=== PATIENT | female | born 1940 | race African-American/Black ===

== ENCOUNTER → 2017-12-19 | Outpatient (CLI) | payer MEDICARE ==
[~2017-12-19] MED LIST: AMIODARONE HCL200 MG PO; AMLODIPINE BESY10 MG PO; COLACE100 MG PO; DYMISTA NASAL S23 GM; IBUPROFEN200 MG PO; LOSARTAN POTAS100 MG PO; OMEPRAZOLE40 MG PO; PRAVASTATIN SOD40 MG PO; RANITIDINE HCL300 MG PO
--- NOTE | 2017-12-19 09:37 | Diagnostic Imaging Report ---
PROCEDURE:US OF PAROTID COMPARISON:None. INDICATIONS:Parotid Mass FINDINGS:Within the right parotid gland, corresponding to the clinically palpable abnormality, there is a lobulated heterogeneous but predominantly hypoechoic, relatively well-circumscribed lesion with internal vascularity measuring 2.6 x 1.5 x 2 cm. Comparison examination of the left parotid gland shows uniform glandular echotexture without left parotid nodule. CONCLUSION: 2.6 cm lobulated hypoechoic lesion in the right parotid may reflect a pleomorphic adenoma or Warthin tumor. Sonographic guided fine needle aspiration had been requested at the time of this dictation. Dictated by: Jeffrey Aleman M.D. on 12/19/2017 at 9:37 Electronically approved by: Jeffrey Aleman M.D. on 12/19/2017 at 9:37
--- NOTE | 2017-12-19 11:46 | Diagnostic Imaging Report ---
PROCEDURE:FINE NEEDLE ASPIRATION COMPARISON:Diagnostic parotid ultrasound performed same day. Preprocedure diagnosis:parotid mass Post procedure diagnosis: Parotid mass Planning Technician: Jeffrey Aleman M.D. Estimated blood loss: Minimal Blood products administered: None Implants/grafts: None Specimens: Fine-needle aspiration specimens x3 Complications: No immediate Condition at completion of procedure: Stable Disposition: Discharge home Sedation/anesthesia: None Additional medications: Lidocaine 1% for local anesthesia. Procedure in detail: Informed consent for the procedure was obtained from the patient and documented in the medical record after discussion of risks and benefits. The patient was placed in the supine position on the sonographic table. Preliminary sonographic evaluation confirmed presence of a lobulated predominantly hypoechoic nodule in the superficial lobe of the right parotid gland. A suitable percutaneous approach was identified. The right facial region was then prepped and draped in standard sterile fashion. 1% lidocaine was infiltrated into the skin and subcutaneous tissues for local anesthesia. Under continuous sonographic guidance, a total of 3 fine needle aspiration specimens were obtained using 25 gauge needles. Specimens were submitted to on-site cytopathology personnel and adequacy was confirmed. At the conclusion of sampling the needle was removed and a sterile dressing was applied. The patient tolerated the procedure well without immediate complication. CONCLUSION: Successful ultrasound-guided fine needle aspiration of a right parotid nodule without immediate complication. Dictated by: Jeffrey Aleman M.D. on 12/19/2017 at 11:46 Electronically approved by: Jeffrey Aleman M.D. on 12/19/2017 at 11:46
--- NOTE | 2017-12-19 11:47 | Diagnostic Imaging Report ---
PROCEDURE:ULTRASOUND GUIDANCE FOR PROCEDURE COMPARISON:None. INDICATIONS: parotid mass PROCEDURE: See conclusion CONCLUSION: Refer to "FINE NEEDLE ASPIRATION" also performed 12/19/2017 for full dictated report. Dictated by: Jeffrey Aleman M.D. on 12/19/2017 at 11:47 Electronically approved by: Jeffrey Aleman M.D. on 12/19/2017 at 11:47
== END ==
LOC: US 08:31
PROVIDERS: ATTEND Otolaryngology
DX: K11.9 Disease of salivary gland, unspecified (principal)
CPT/HCPCS: 10022; 76536; 76942; 88172; 88173; 88305

== ENCOUNTER 2018-01-08 10:17 | Emergency (ER) | payer MEDICARE ==
[~2018-01-08] VITALS: Ht 170.2 cm; Wt 106.6 kg
--- OUTSIDE RECORDS SUMMARY | 2018-01-08 10:20 | XMS REPORT ---
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 Allergies, Adverse Reactions, Alerts This patient has no known allergies or adverse reactions. Medications This patient has no known medications. Results Test Description Test Time Test Comments Text Results Atomic Results Result Comments US OF PAROTID [place] [address] Patient Name: INDIRA DE LA ROSA MR #: [id number] : 1940 Age/Sex: 77/F Req #: [id number] [facility] Physician: Ordered by: GREYSON WILLIS, FELIPE WILLIS Report #: [id number] Location: US Room/Bed: Procedure: [id number] US/US OF PAROTID Exam Date: Exam Time: REPORT STATUS: Signed PROCEDURE: US OF PAROTID COMPARISON: None. INDICATIONS: Parotid Mass FINDINGS: Within the right parotid gland, corresponding to the clinically palpable abnormality, there is a lobulated heterogeneous but predominantly hypoechoic, relatively well- circumscribed lesion with internal vascularity measuring 2.6 x 1.5 x 2 cm. Comparison examination of the left parotid gland shows uniform glandular echotexture without left parotid nodule. CONCLUSION: 2.6 cm lobulated hypoechoic lesion in the right parotid may reflect a pleomorphic adenoma or Warthin tumor. Sonographic guided fine needle aspiration had been requested at the time of this dictation. Dictated by : Adolfo Bo M.D. on 12/19/2017 at 9:37 Electronically approved by: Adolfo Bo M.D. on 12/19/2017 at 9:37 Dictated By: ADOLFO BO MD 6 Transcribed By : JESUS on 12/19/17936 COPY TO: FELIPE RUBI FINE NEEDLE ASPIRATION [place] [address] Patient Name: INDIRA DE LA ROSA MR #: [id number] : 1940 Age/Sex: 77/F Req #: [id number] Adm Physician: Ordered by: FELIPE RUBI MD, MD Report #: [id number] Location: Room/Bed: Procedure: [id number] US/FINE NEEDLE ASPIRATION Exam Date: 12/19/17 Exam Time: 1007 REPORT STATUS: Signed PROCEDURE: FINE NEEDLE ASPIRATION COMPARISON: Diagnostic parotid ultrasound performed same day. Preprocedure diagnosis: parotid mass Post procedure diagnosis: Parotid mass Coal Screener: Adolfo Bo M.D. Estimated blood loss: Minimal Blood products administered: None Implants/grafts: None Specimens: Fine-needle aspiration specimens x3 Complications: No immediate Condition at completion of procedure: Stable Disposition: Discharge home Sedation/anesthesia: None Additional medications: Lidocaine 1% for local anesthesia. Procedure in detail: Informed consent for the procedure was obtained from the patient and documented in the medical record after discussion of risks and benefits. The patient was placed in the supine position on the sonographic table. Preliminary sonographic evaluation confirmed presence of a lobulated predominantly hypoechoic nodule in the superficial lobe of the right parotid gland. A suitable percutaneous approach was identified. The right facial region was then prepped and draped in standard sterile fashion. 1% lidocaine was infiltrated into the skin and subcutaneous tissues for local anesthesia. Under continuous sonographic guidance, a total of 3 fine needle aspiration specimens were obtained using 25 gauge needles. Specimens were submitted to on-site cytopathology personnel and adequacy was confirmed. At the conclusion of sampling the needle was removed and a sterile dressing was applied. The patient tolerated the procedure well without immediate complication. CONCLUSION: Successful ultrasound-guided fine needle aspiration of a right parotid nodule without immediate complication. Dictated by: Adolfo Bo M.D. on 12/19/2017 at 11:46 Electronically approved by: Adolfo Bo M.D. on 12/19/2017 at 11:46 Dictated By: ADOLFO BO MD 1146 Transcribed By: JESUS on 12/19/17 1146 COPY TO: FELIPE RUBI GUIDANCE FOR PROCEDURE [place] [address] Patient Name: INDIRA DE LA ROSA MR #: [id number] : 1940 Age/Sex: 77/F Req #: [id number] Adm Physician: Ordered by: FELIPE RUBI MD, MD Report #: [id number] Location: Room/Bed: Procedure: [id number] US/US GUIDANCE FOR PROCEDURE Exam Date: 12/19/17 Exam Time: 1007 REPORT STATUS: Signed PROCEDURE: ULTRASOUND GUIDANCE FOR PROCEDURE COMPARISON: None. INDICATIONS: parotid mass PROCEDURE: See conclusion CONCLUSION: Refer to "FINE NEEDLE ASPIRATION" also performed 12/19/2017 for full dictated report. Dictated by: Adolfo Bo M.D. on 12/19/2017 at 11:47 Electronically approved by: Adolfo Bo M.D. on 12/19/2017 at 11:47 Dictated By : ADOLFO BO MD 46 Transcribed By: JESUS on 12/19/171146 COPY TO: FELIPE RUBI Stress Test - Treadmill ONLY [place] [address] Patient Name : INDIRA DE LA ROSA MR #: [id number] : 1940 Age/Sex: 77/F Adm Physician : ADOLFO DE LOS SANTOS MD Admit Date : Location : [place] Room/Bed : REPORT: Cardiology Report DATE OF STUDY: September 21, 2017 LEXISCAN NUCLEAR STRESS TEST INDICATION: Chest pain. COMPLICATIONS : None. TECHNIQUE: The patient was given 11 millicuries of Myoview. Resting images were obtained in the horizontal long axis, vertical long axis and short axis. After completion of resting pictures, the patient was hooked up to the EKG machine and infused with Lexiscan over 15 seconds. Thirty minutes after completion of Lexiscan infusion, stress images were obtained in the horizontal long axis, vertical long axis and short axis using 33 millicuries of Myoview. RESULTS: 1. The resting EKG demonstrated normal sinus rhythm with left ventricular hypertrophy. 2. There were no EKG changes and no symptoms during Lexiscan infusion. 3. There was normal perfusion to all segments of myocardium in both stress and rest. 4. There was normal left ventricular size and function with an ejection fraction of 62 %. CONCLUSION: The patient has normal left ventricular size and function with an ejection fraction of 62%. There is no reversible defect and no fixed defect and no evidence of myocardial ischemia. DD: 2015 16:04 Job#: [id number] Signature Date Dictated By: ADOLFO DE LOS SANTOS MD Transcribed By: KEYANA on 09/21/17 < Electronically signed by ADOLFO DE LOS SANTOS MD><<Signature on File>>10/02/17 0700 COPY TO:
[2018-01-08] MEDS ORDERED: FERROUS SULFAT325 MG PO (11:00)
[2018-01-08] MEDS ORDERED: HYDRALAZINE HCL25 MG PO (11:00)
[2018-01-08] MEDS ORDERED: LABETALOL HCL200 MG PO (11:00)
[2018-01-08] MEDS ORDERED: LOSARTAN POTAS100 MG PO (11:00)
[2018-01-08] MEDS ORDERED: MECLIZINE HCL 12.5 MG TAB PO ONE (11:30)
[2018-01-08] MEDS ORDERED: ONDANSETRON HCL 4 MG ORAL DISINTEGRATING TAB PO ONE (11:30)
[2018-01-08 11:33] LABS: BASOPHILS # (AUTO) 0.1 (0.0-0.1); BASOPHILS % 0.6 % (0.0-1.0); EOSINOPHILS # (AUTO) 0.2 (0.0-0.4); EOSINOPHILS % 1.4 % (0.0-6.0); HEMATOCRIT 34.3 % (34.2-44.1); HEMOGLOBIN 10.9 g/dL (12.0-16.0); LYMPHOCYTES # (AUTO) 1.4 (1.0-3.2); LYMPHOCYTES % 12.9 % (18.0-39.1); MEAN CORPUSCULAR HEMOGLOBIN 21.8 pg (28-32); MEAN CORPUSCULAR HGB CONC 31.8 g/dL (31-35); MEAN CORPUSCULAR VOLUME 68.7 fL (81-99); MONOCYTES # (AUTO) 0.6 (0.2-0.8); MONOCYTES % 5.8 % (4.4-11.3); NEUTROPHILS # (AUTO) 8.6 (2.1-6.9); NEUTROPHILS % 78.9 % (38.7-80.0); PLATELET COUNT 311 x10e3/uL (140-360); RED BLOOD COUNT 4.99 x10e6/uL (3.6-5.1); RED CELL DISTRIBUTION WIDTH 16.9 % (11.7-14.4)
[2018-01-08 11:50] LABS: ALANINE AMINOTRANSFERASE 19 IU/L (0-55); ALBUMIN 3.4 g/dL (3.5-5.0); ALBUMIN/GLOBULIN RATIO 0.9 (0.8-2.0); ALKALINE PHOSPHATASE 96 IU/L (40-150); BLOOD UREA NITROGEN 13 mg/dL (7-26); BUN/CREATININE RATIO 14 (6-25); CARBON DIOXIDE 24 mmol/L (22-29); CHLORIDE 105 mmol/L (98-107); CREATININE, SERUM 0.93 mg/dL (0.57-1.11); EST GLOMERULAR FILTRATION RATE > 60 ML/MIN (60-); GLUCOSE 99 mg/dL (74-118); SODIUM 140 mmol/L (136-145)
== END 2018-01-08 13:41 | disposition home or self-care (01) ==
LOC: ER 10:17
DX: R42 Dizziness and giddiness (principal); R11.0 Nausea; I10 Essential (primary) hypertension; D64.9 Anemia, unspecified
CPT/HCPCS: 36415; 80053; 85025; 93005; 99284

== ENCOUNTER 2018-01-14 09:01 | Emergency (ER) | payer MEDICARE ==
[~2018-01-14] VITALS: Ht 170.2 cm; Wt 97.5 kg
[~2018-01-14 09:01] MED LIST changes: +FERROUS SULFAT325 MG PO; +HYDRALAZINE HCL25 MG PO; +LABETALOL HCL200 MG PO
--- OUTSIDE RECORDS SUMMARY | 2018-01-14 09:05 | XMS REPORT | Continuity of Care Document ---
Author Author [facility] Organization 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 No 01/08/18 1:34pm If yes, is advance directive on file with [facility]? No 03/04/15 4:33pm If not on file with [facility] will patient provide a copy? No 01/08/18 1:34pm Do you have a Directive to Physician? No 01/08/18 1:34pm Do you have a Medical Power of Catia Designer? No 01/08/18 1:34pm Do you have an out of hospital Do Not Resuscitate Order? No 01/08/18 1:34pm Do you have any special needs we should be aware of? No 01/08/18 1:34pm Do you have a support person here with you today? Yes 01/08/18 1:34pm Did patient receive Notice of Privacy Practices? Yes 01/08/18 1:34pm Did patient receive patient rights and responsibilities? Yes 01/08/18 1:34pm Problems No problem information available. Medications Current Home Medications Medication Dose Units Route Directions Days Qty Instructions Start Date Amiodarone Hcl 200 Mg Tablet 200 Mg Oral Daily Amlodipine Besylate 10 Mg Tablet 10 Mg Oral Daily 30 Tab Azelastine/Fluticasone (Dymista Nasal [place]) 23 Gm [place].pump 137 Mg Nasal Daily Docusate Sodium (Colace) 100 Mg Cap 100 Mg Oral Daily 30 Cap Ferrous Sulfate 325 Mg Tablet 32 Mg Oral Daily Hydralazine Hcl 25 Mg Tab 25 Mg Oral Three Times A Day Ibuprofen 200 Mg Capsule 200 Mg Oral Daily Labetalol Hcl 200 Mg Tablet 200 Mg Oral Twice A Day 60 Tab Losartan Potassium 100 Mg Tablet 100 Mg Oral Daily Losartan Potassium 100 Mg Tablet 100 Mg Oral Daily Omeprazole 40 Mg Capsule.dr 40 Mg Oral Daily Pravastatin Sodium 40 Mg Tablet 40 Mg Oral Daily Ranitidine Hcl 300 Mg Tablet 300 Mg Oral Daily Social History Social History Problem Response Recorded Date/Time Onset Date Status Hx Psychiatric Problems No 03/04/2015 4:33pm Not Applicable Not Applicable Hx Eating Disorder No 03/04/2015 4:33pm Not Applicable Not Applicable Hx Substance Use Disorder No 03/04/2015 4:33pm Not Applicable Not Applicable Hx Depression No 03/04/2015 4:33pm Not Applicable Not Applicable Hx Alcohol Use No 03/04/2015 4:33pm Not Applicable Not Applicable Hx Substance Use Treatment No 03/04/2015 4:33pm Not Applicable Not Applicable Hx Physical Abuse No 03/04/2015 4:33pm Not Applicable Not Applicable Smoking Status Start Date Stop Date Never Smoker Hospital Discharge Instructions No hospital discharge instruction information available. Plan of Care Discharge Date 01/08/18 1:41pm Disposition HOME, SELF-CARE Condition at Discharge Stable Instructions/Education Provided Hypertension Forms Provided Work/School Excuse Prescriptions See Medication Section Referrals VISHNU BOOGIE MD Order Date: [facility] Address: [address] [place] [id number] Additional Instructions/Education follow up with pcp note changes to hydralazine and change to losartan/hctz Functional Status No functional status information available. Allergies, Adverse Reactions, Alerts No known allergies. Immunizations No immunization information available. Vital Signs Acute Vital Signs Vital Response Date/Time Height 5 ft 7 in 01/08/2018 10:40am Weight 235 lb 01/08/2018 10:40am Body Mass Index 36.8 kg/m^2 01/08/2018 10:40am Results Laboratory Results Test Name Result Units Flags Reference Collection Date/Time Result Date/ Time Comments White Blood Count 10.84 x10e3/uL H 4.8-10.8 01/08/2018 11:20am 2017 12:01pm Red Blood Count 4.99 x10e6/uL 3.6-5.1 01/08/2018 11:2001/08/2018 12: 01pm Hemoglobin 10.9 g/dL L 12.0-16.0 01/08/2018 11:2001/08/2018 12:01pm Hematocrit 34.3 % 34.2-44.1 01/08/2018 11:2001/08/2018 12:01pm Mean Corpuscular Volume 68.7 fL L 81-99 01/08/2018 11:2001/08/2018 12 :01pm Mean Corpuscular Hemoglobin 21.8 pg L 28-32 01/08/2018 11:202017 12:01pm Mean Corpuscular Hemoglobin Concent 31.8 g/dL 31-35 01/08/2018 11:01/08/2018 12:01pm Red Cell Distribution Width 16.9 % H 11.7-14.4 01/08/2018 11:202017 12:01pm Platelet Count 311 x10e3/uL 140-360 01/08/2018 11:2001/08/2018 12: 01pm Neutrophils (%) (Auto) 78.9 % 38.7-80.0 01/08/2018 11:2001/08/2018 12:01pm Lymphocytes (%) (Auto) 12.9 % L 18.0-39.1 01/08/2018 11:2001/08/2018 12:01pm Monocytes (%) (Auto) 5.8 % 4.4-11.3 01/08/2018 11:2001/08/2018 12: 01pm Eosinophils (%) (Auto) 1.4 % 0.0-6.0 01/08/2018 11:20am 01/08/2018 12: 01pm Basophils (%) (Auto) 0.6 % 0.0-1.0 01/08/2018 11:20am 01/08/2018 12: 01pm IM GRANULOCYTES % 0.4 % 0.0-1.0 01/08/2018 11:20am 01/08/2018 12:01pm Neutrophils # (Auto) 8.6 H 2.1-6.9 01/08/2018 11:20am 01/08/2018 12: 01pm Lymphocytes # (Auto) 1.4 1.0-3.2 01/08/2018 11:20am 01/08/2018 12: 01pm Monocytes # (Auto) 0.6 0.2-0.8 01/08/2018 11:20am 01/08/2018 12:01pm Eosinophils # (Auto) 0.2 0.0-0.4 01/08/2018 11:20am 01/08/2018 12: 01pm Basophils # (Auto) 0.1 0.0-0.1 01/08/2018 11:2001/08/2018 12:01pm Absolute Immature Granulocyte (auto 0.04 x10e3/uL 0-0.1 01/08/2018 11: 20am 01/08/2018 12:01pm Sodium Level 140 mmol/L 136-145 01/08/2018 11:20am 01/08/2018 11:55am Potassium Level 4.0 mmol/L 3.5-5.1 01/08/2018 11:20am 01/08/2018 11: 55am Chloride Level 105 mmol/L 98-107 01/08/2018 11:20am 01/08/2018 11:55am Carbon Dioxide Level 24 mmol/L 22-29 01/08/2018 11:20am 01/08/2018 11: 55am Anion Gap 15.0 mmol/L 8-16 01/08/2018 11:20am 01/08/2018 11:55am Blood Urea Nitrogen 13 mg/dL 7-01/08/2018 11:20am 01/08/2018 11: 55am Creatinine 0.93 mg/dL 0.57-1.11 01/08/2018 11:20am 01/08/2018 11:55am BUN/Creatinine Ratio 14 6-25 01/08/2018 11:20am 01/08/2018 11:55am Estimat Glomerular Filtration Rate > 60 ML/MIN 60- 01/08/2018 11:20am 01/08/2018 11:55am Ranges were taken from the National Kidney Disease Education Program and the National Kidney Foundation literature. Reference ranges: 60 or greater: Normal 16-59 (for 3 consecutive months): Chronic kidney disease 15 or less: Kidney failure Glucose Level 99 mg/dL 74-118 01/08/2018 11:20am 01/08/2018 11:55am Calcium Level 9.0 mg/dL 8.4-10.2 01/08/2018 11:20am 01/08/2018 11:55am Total Bilirubin 0.5 mg/dL 0.2-1.2 01/08/2018 11:20am 01/08/2018 11: 55am Aspartate Amino Transf (AST/SGOT) 17 IU/L 5-34 01/08/2018 11:20am 01/08 11:55am Alanine Aminotransferase (ALT/SGPT) 19 IU/L 0-55 01/08/2018 11:20am 04/2018 11:55am Total Protein 7.0 g/dL 6.5-8.1 01/08/2018 11:20am 01/08/2018 11:55am Albumin 3.4 g/dL L 3.5-5.0 01/08/2018 11:20am 01/08/2018 11:55am Globulin 3.6 g/dL H 2.3-3.5 01/08/2018 11:20am 01/08/2018 11:55am Albumin/Globulin Ratio 0.9 0.8-2.0 01/08/2018 11:20am 01/08/2018 11: 55am Alkaline Phosphatase 96 IU/L 40-150 01/08/2018 11:20am 01/08/2018 11: 55am Procedures Procedure Status Date Provider(s) Ultrasound of parotid gland Active 12/19/17 FELIPE RUBI Fine Needle Aspiration Active 12/19/17 FELIPE RUBI Echo guide for biopsy Active 12/19/17 FELIPE RUBI Encounters Encounter Location Arrival/Admit Date Discharge/Depart Date Attending Provider Departed Emergency Room [facility] 01/08/18 10:17am 01/08 1:41pm APOORVA JARAMILLO MD Registered Clinic [facility] 12/19/17 8:31am FELIPE RUBI Registered Clinic [facility] 09/21/17 8:01am ADOLFO DE LOS SANTOS MD
[2018-01-14 10:26] LABS: BASOPHILS # (AUTO) 0.1 (0.0-0.1); EOSINOPHILS # (AUTO) 0.2 (0.0-0.4); EOSINOPHILS % 1.7 % (0.0-6.0); HEMATOCRIT 33.2 % (34.2-44.1); HEMOGLOBIN 10.5 g/dL (12.0-16.0); LYMPHOCYTES # (AUTO) 1.4 (1.0-3.2); LYMPHOCYTES % 15.9 % (18.0-39.1); MEAN CORPUSCULAR HEMOGLOBIN 21.8 pg (28-32); MEAN CORPUSCULAR HGB CONC 31.6 g/dL (31-35); MEAN CORPUSCULAR VOLUME 68.9 fL (81-99); MONOCYTES # (AUTO) 0.5 (0.2-0.8); MONOCYTES % 5.8 % (4.4-11.3); NEUTROPHILS # (AUTO) 6.5 (2.1-6.9); NEUTROPHILS % 74.6 % (38.7-80.0); PLATELET COUNT 338 x10e3/uL (140-360); RED BLOOD COUNT 4.82 x10e6/uL (3.6-5.1); RED CELL DISTRIBUTION WIDTH 16.5 % (11.7-14.4)
[2018-01-14 10:47] LABS: ALANINE AMINOTRANSFERASE 29 IU/L (0-55); ALBUMIN 3.4 g/dL (3.5-5.0); ALKALINE PHOSPHATASE 96 IU/L (40-150); AMYLASE 47 U/L (25-125); ANION GAP 13.2 mmol/L (8-16); BLOOD UREA NITROGEN 17 mg/dL (7-26); BUN/CREATININE RATIO 16 (6-25); CALCIUM 8.8 mg/dL (8.4-10.2); CARBON DIOXIDE 27 mmol/L (22-29); CHLORIDE 106 mmol/L (98-107); CREATINE KINASE 77 IU/L (29-168); CREATININE, SERUM 1.04 mg/dL (0.57-1.11); EST GLOMERULAR FILTRATION RATE > 60 ML/MIN (60-); GLUCOSE 106 mg/dL (74-118); LIPASE 13 U/L (8-78); POTASSIUM 4.2 mmol/L (3.5-5.1); SODIUM 142 mmol/L (136-145)
[2018-01-14 11:16] LABS: BILIRUBIN,URINE NEGATIVE (NEGATIVE); CLARITY,URINE CLEAR (CLEAR); COLOR,URINE YELLOW (YELLOW); KETONES,URINE NEGATIVE (NEGATIVE); LEUKOCYTE ESTERASE ,URINE NEGATIVE (NEGATIVE); NITRITE,URINE NEGATIVE (NEGATIVE); PROTEIN,URINE DIPSTICK 1+ (NEGATIVE); URINE UROBILINOGEN 0.2 mg/dL (0.2 - 1)
[2018-01-14 11:38] LABS: BACTERIA,URINE FEW /HPF; EPITHELIAL CELLS,URINE FEW /LPF
[2018-01-14] MEDS ORDERED: SODIUM CHLORIDE 0.9% 50ML 50 ML ONE (11:53)
[2018-01-14] MEDS ORDERED: IOPAMIDOL 370 MG/ML 200 ML INFUS..BTL INJ ONE (11:53)
--- NOTE | 2018-01-14 12:29 | Diagnostic Imaging Report ---
PROCEDURE:CT ABDOMEN AND PELVIS WITH CONTRAST COMPARISON:None. INDICATIONS:MID ABDOMINAL PAIN TECHNIQUE: Multidetector CT scanning of the abdomen and pelvis was performed after the administration of 100 cc of nonionic contrast. Coronal and sagittal reformations were obtained. Routine protocol performed. DLP: 748.10 mGy*cm FINDINGS: Lung bases: Clear. The heart is enlarged and contains a pacer/defibrillator wire. Liver: Normal attenuation. No mass. The right lobe measures 19 cm in length. Biliary: Gallbladder is present and appears normal. No biliary ductal dilatation. Spleen: Normal size and attenuation. 2 linear low-attenuation lesions in the upper pole are suggestive of infarcts. Pancreas: The mild fatty atrophy without mass or ductal dilatation. Adrenal Glands: Mass in the left adrenal gland measures 1.6 x 2.0 cm. Nodule in the apex measures 8 mm. The right adrenal gland is mildly thickened without mass.. Kidneys: Symmetric enhancement. Cyst in the lower pole of the right kidney measures 3.4 x 3.3 cm and may be septated. No hydronephrosis. Subcentimeter low attenuating lesion in the left kidney in the upper pole has the appearance of a cyst. No hydronephrosis. 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 Gastrointestinal: The stomach is normal. Small bowel is normal in diameter with normal wall thickness. Diverticulosis coli is present without associated inflammation. The appendix is not visualized and may be absent or collapsed. Aorta: The diffusely calcified without aneurysmal dilatation. Peritoneum/Retroperitoneum: No free fluid or fluid collection. No lymphadenopathy. Bladder: Normal. No ureteral dilatation. Reproductive organs: The uterus is absent. No adnexal masses. Musculoskeletal: Postoperative changes of the lower lumbar spine from laminectomy and interbody fusion at L4-5. No compression deformities. The hardware is intact without evidence of lucency to suggest loosening. A sclerotic, well-defined lesion in the right ilium measures 6 mm. There is subchondral sclerosis of the right femoral head without collapse. Mild degenerative changes of the right hip are also present. No evidence of hernia. CONCLUSION: 1. Diverticulosis coli. No bowel obstruction or inflammation. 2. Hepatomegaly. 3. Avascular necrosis of the right femur. 4. Postoperative changes of the lower lumbar spine as described above. 5. Bilateral renal cysts. 6. Cardiomegaly and atherosclerosis. 7. Left adrenal nodules, likely adenomata. This was confirmed with CT dedicated to the adrenal glands. 8. 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 Dictated by: Reggie Chaudhry M.D. on 01/14/2018 at 12:29 Electronically approved by: Reggie Chaudhry M.D. on 01/14/2018 at 12:29
[2018-01-14 13:58] VITALS: BP 188/83
== END 2018-01-14 14:14 | disposition home or self-care (01) ==
LOC: ER 09:01
DX: R10.31 Right lower quadrant pain (principal); R10.84 Generalized abdominal pain; I10 Essential (primary) hypertension; I25.10 Atherosclerotic heart disease of native coronary artery without angina pectoris; K21.9 Gastro-esophageal reflux disease without esophagitis
CPT/HCPCS: 36415; 74177; 80053; 81001; 82150; 82550; 82553; 83690; 83880; 84484; 85025; 93005; 99284; Q9967

== ENCOUNTER 2018-01-29 05:16 | Observation (INO) | payer MEDICARE ==
--- NOTE | 2018-01-24 14:26 | Diagnostic Imaging Report ---
PROCEDURE: Frontal and lateral views of the chest. COMPARISON: Chest 2 views 02/26/2015. INDICATIONS: PREOPERATIVE CHEST XRAY FOR PAROTID GLAND REMOVAL FINDINGS: Lines/tubes: Left chest cardiac device with leads projecting over the expected regions of the right atrium and ventricle. Lungs: The lungs are well inflated and clear. There is no evidence of pneumonia or pulmonary edema. Pleura: There is no pleural effusion or pneumothorax. Heart and mediastinum: The heart and the mediastinum are normal. Bones: No acute bony abnormality. IMPRESSION: No acute radiographic abnormality. Dictated by: Bandar Rangel M.D. on 01/24/2018 at 14:26 Electronically approved by: Bandar Rangel M.D. on 01/24/2018 at 14:26
[~2018-01-29] VITALS: Ht 170.2 cm; Wt 108.9 kg
[~2018-01-29 05:16] MED LIST changes: +DICYCLOMINE HCL20 MG PO
--- OUTSIDE RECORDS SUMMARY | 2018-01-29 05:18 | XMS REPORT | Continuity of Care Document ---
Author Author [facility] Organization [facility] Address [address] [place] [address] Phone Unavailable Care Team Providers Care B2B Sales Representative Name Role Phone VISHNU BOOGIE MD PCP Insurance Providers Guarantor Carolin De La Rosa Address [address] [place] [address] Email PTDECLINED Payer Medicare A & B Policy Number [id number] Subscriber's Name Carolin De La Rosa Relationship 18 Self / Same As Patient Advance Directives Directive Response Recorded Date/Time Does the patient have an advance directive? No 01/08/18 1:34pm If yes, is advance directive on file with [facility]? No 03/04/15 4:33pm If not on file with [facility] will patient provide a copy? No 01/08/18 1:34pm Do you have a Directive to Physician? No 01/14/18 11:05am Do you have a Medical Power of Transit Bus Driver? No 01/14/18 11:05am Do you have an out of hospital Do Not Resuscitate Order? No 01/14/18 11:05am Do you have any special needs we should be aware of? No 01/14/18 11:05am Do you have a support person here with you today? Yes 01/14/18 11:05am Did patient receive Notice of Privacy Practices? Yes 01/14/18 11:05am Did patient receive patient rights and responsibilities? Yes 01/14/18 11:05am Problems No problem information available. Medications Current Home Medications Medication Dose Units Route Directions Days Qty Instructions Start Date Amiodarone Hcl 200 Mg Tablet 200 Mg Oral Daily Amlodipine Besylate 10 Mg Tablet 10 Mg Oral Daily 30 Tab Azelastine/Fluticasone (Dymista Nasal [place]) 23 Gm [place].pump 137 Mg Nasal Daily Docusate Sodium (Colace) [...] information available. Plan of Care Discharge Date 01/14/18 2:14pm Disposition HOME, SELF-CARE Condition at Discharge Stable Instructions/Education Provided Abdominal Pain - Adult Forms Provided Work/School Excuse Prescriptions See Medication Section Referrals VISHNU BOOGIE MD Address: [address] [place] [address] [place] [id number] GABRIELLA ZAMORA MD Address: [address] [place] [address] [place] [id number] Functional Status No functional status information available. Allergies, Adverse Reactions, Alerts No known allergies. Immunizations No immunization information available. Vital Signs Acute Vital Signs Vital Response Date/Time Temperature (Fahrenheit) 97.8 degrees F (97.6 - 99.5) 01/14/2018 1:58pm Pulse Pulse Rate (adult) 60 bpm (60 - 90) 01/14/2018 1:58pm Respiratory Rate 18 bpm (12 - 24) 01/14/2018 1:58pm Blood Pressure 188/83 mm Hg 01/14/2018 1:58pm Height 5 ft 7 in 01/14/2018 9:07am Weight 215 lb 01/14/2018 9:07am Body Mass Index 33.7 kg/m^2 01/14/2018 9:07am Results Laboratory Results Test Name Result Units Flags Reference Collection Date/Time Result Date/ Time Comments White Blood Count 8.75 x10e3/uL 4.8-10.8 01/14/2018 10:10a01/14/2018 10:27am Red Blood Count 4.82 x10e6/uL 3.6-5.1 01/14/2018 10:10a01/14/2018 10: 27am Hemoglobin 10.5 g/dL L 12.0-16.0 01/14/2018 10:10a01/14/2018 10:27am Hematocrit 33.2 % L 34.2-44.1 01/14/2018 10:10a01/14/2018 10:27am Mean Corpuscular Volume 68.9 fL L 81-99 01/14/2018 10:10a01/14/2018 10 :27am Mean Corpuscular Hemoglobin 21.8 pg L 28-32 01/14/2018 10:10a2017 10:27am Mean Corpuscular Hemoglobin Concent 31.6 g/dL 31-35 01/14/2018 10:10a01/14/2018 10:27am Red Cell Distribution Width 16.5 % H 11.7-14.4 01/14/2018 10:10a2017 10:27am Platelet Count 338 x10e3/uL 140-360 01/14/2018 10:10a01/14/2018 10: 27am Neutrophils (%) (Auto) 74.6 % 38.7-80.0 01/14/2018 10:10a01/14/2018 10:27am Lymphocytes (%) (Auto) 15.9 % L 18.0-39.1 01/14/2018 10:10a01/14/2018 10:27am Monocytes (%) (Auto) 5.8 % 4.4-11.3 01/14/2018 10:10a01/14/2018 10: 27am Eosinophils (%) (Auto) 1.7 % 0.0-6.0 01/14/2018 10:01/14/2018 10: 27am Basophils (%) (Auto) 1.0 % 0.0-1.0 01/14/2018 10:10a01/14/2018 10: 27am IM GRANULOCYTES % 1.0 % 0.0-1.0 01/14/2018 10:10a01/14/2018 10:27am Neutrophils # (Auto) 6.5 2.1-6.9 01/14/2018 10:10a01/14/2018 10: 27am Lymphocytes # (Auto) 1.4 1.0-3.2 01/14/2018 10:10a01/14/2018 10: 27am Monocytes # (Auto) 0.5 0.2-0.8 01/14/2018 10:10a01/14/2018 10:27am Eosinophils # (Auto) 0.2 0.0-0.4 01/14/2018 10:10a01/14/2018 10: 27am Basophils # (Auto) 0.1 0.0-0.1 01/14/2018 10:10a01/14/2018 10:27am Absolute Immature Granulocyte (auto 0.09 x10e3/uL 0-0.1 01/14/2018 10: 10a01/14/2018 10:27am Urine Color YELLOW YELLOW 01/14/2018 11:00am 01/14/2018 11:16am Urine Clarity CLEAR CLEAR 01/14/2018 11:00am 01/14/2018 11:16am Urine Specific [place] 1.015 1.010-1.025 01/14/2018 11:00am 2017 11:16am Urine pH 8 H 5 - 7 01/14/2018 11:00am 01/14/2018 11:16am Urine Leukocyte Esterase NEGATIVE NEGATIVE 01/14/2018 11:00am 2017 11:16am Urine Nitrite NEGATIVE NEGATIVE 01/14/2018 11:00am 01/14/2018 11: 16am Urine Protein 1+ H NEGATIVE 01/14/2018 11:00am 01/14/2018 11:16am Urine Glucose (UA) NEGATIVE NEGATIVE 01/14/2018 11:00am 01/14/2018 11 :16am Urine Ketones NEGATIVE NEGATIVE 01/14/2018 11:00am 01/14/2018 11: 16am Urine Urobilinogen 0.2 mg/dL 0.2 - 1 01/14/2018 11:00am 01/14/2018 11: 16am Urine Bilirubin NEGATIVE NEGATIVE 01/14/2018 11:00am 01/14/2018 11: 16am Urine Blood NEGATIVE NEGATIVE 01/14/2018 11:00am 01/14/2018 11:16am Urine WBC NONE /HPF 0-5 01/14/2018 11:00am 01/14/2018 11:38am Urine RBC NONE /HPF 0-5 01/14/2018 11:00am 01/14/2018 11:38am Urine Bacteria FEW /HPF NONE 01/14/2018 11:00am 01/14/2018 11:38am Urine Epithelial Cells FEW /LPF NONE 01/14/2018 11:00am 01/14/2018 11: 38am Sodium Level 142 mmol/L 136-145 01/14/2018 10:10am 01/14/2018 10:47am Potassium Level 4.2 mmol/L 3.5-5.1 01/14/2018 10:10a01/14/2018 10: 47am Chloride Level 106 mmol/L 98-107 01/14/2018 10:10a01/14/2018 10:47am Carbon Dioxide Level 27 mmol/L 22-29 01/14/2018 10:10a01/14/2018 10: 47am Anion Gap 13.2 mmol/L 8-16 01/14/2018 10:10am 01/14/2018 10:47am Blood Urea Nitrogen 17 mg/dL 7-01/14/2018 10:10am 01/14/2018 10: 47am Creatinine 1.04 mg/dL 0.57-1.11 01/14/2018 10:10am 01/14/2018 10:47am BUN/Creatinine Ratio 16 6-25 01/14/2018 10:01/14/2018 10:47am Estimat Glomerular Filtration Rate > 60 ML/MIN 60- 01/14/2018 10:01/14/2018 10:47am Ranges were taken from the National Kidney Disease Education Program and the National Kid[employer] Foundation literature. Reference ranges: 60 or greater: Normal 16-59 (for 3 consecutive months): Chronic kidney disease 15 or less: Kidney failure Glucose Level 106 mg/dL 74-118 01/14/2018 10:01/14/2018 10:47am Calcium Level 8.8 mg/dL 8.4-10.2 01/14/2018 10:01/14/2018 10:47am Total Bilirubin 0.4 mg/dL 0.2-1.2 01/14/2018 10:01/14/2018 10: 47am Aspartate Amino Transf (AST/SGOT) 27 IU/L 5-34 01/14/2018 10:01/14 10:47am Alanine Aminotransferase (ALT/SGPT) 29 IU/L 0-55 01/14/2018 10:10/2018 10:47am Total Protein 6.9 g/dL 6.5-8.1 01/14/2018 10:01/14/2018 10:47am Albumin 3.4 g/dL L 3.5-5.0 01/14/2018 10:01/14/2018 10:47am Globulin 3.5 g/dL 2.3-3.5 01/14/2018 10:01/14/2018 10:47am Albumin/Globulin Ratio 1.0 0.8-2.0 01/14/2018 10:01/14/2018 10: 47am Alkaline Phosphatase 96 IU/L 40-150 01/14/2018 10:01/14/2018 10: 47am B-Type Natriuretic Peptide 180.8 pg/mL H 0-100 01/14/2018 10:2017 10:50am Creatine Kinase 77 IU/L 29-168 01/14/2018 10:01/14/2018 10:47am Creatine Kinase MB 1.30 ng/mL 0-5.0 01/14/2018 10:01/14/2018 10: 54am Troponin I 0.024 ng/mL 0-0.300 01/14/2018 10:10am 01/14/2018 10:54am Amylase Level 47 U/L 25-125 01/14/2018 10:10am 01/14/2018 10:47am Lipase 13 U/L 8-78 01/14/2018 10:10am 01/14/2018 10:47am Procedures Procedure Status Date Provider(s) Ultrasound of parotid gland Active 12/19/17 FELIPE RUBI Fine Needle Aspiration Active 12/19/17 FELIPE RUBI Echo guide for biopsy Active 12/19/17 FELIPE RUBI Computed tomography of abdomen and pelvis with contrast Active 01/14/18 ALBA CALDWELL MD Encounters Encounter Location Arrival/Admit Date Discharge/Depart Date Attending Provider Departed Emergency Room [facility] 01/14/18 9:01am 2:14pm ALBA CALDWELL MD Departed Emergency Room [facility] 01/08/18 10:17am 01/08 1:41pm APOORVA JARAMILLO MD Registered Clinic [facility] 12/19/17 8:31am FELIPE RUBI Registered Clinic [facility] 09/21/17 8:01am DAOLFO DE LOS SANTOS MD
[2018-01-29] MEDS ORDERED: EPINEPHRINE HCL INJ 1 MG/ML AMP ONE (06:27)
[2018-01-29] MEDS ORDERED: SODIUM CHLORIDE 0.9% INJ 10 ML VIAL ONE (06:27)
[2018-01-29] MEDS ORDERED: HYDRALAZINE HCL 20 MG/ML VIAL ONE (10:20)
[2018-01-29 11:38] VITALS: BP 168/75
[2018-01-29] MEDS ORDERED: LACTATED RINGER'S 1,000 ML INJ SCH (12:45)
[2018-01-29] MEDS ORDERED: HYDROCODONE/APAP 10MG-325MG TAB PO PRN (12:45)
[2018-01-29] MEDS ORDERED: ONDANSETRON HCL INJ 2 MG/ML VIAL IV PRN (12:45)
[2018-01-29 13:01] VITALS: BP 168/75
[2018-01-29 13:21] VITALS: BP 168/75
--- NOTE | 2018-01-29 14:06 | Operative Report ---
PREOPERATIVE DIAGNOSIS: Right parotid gland mass. POSTOPERATIVE DIAGNOSIS: Right parotid gland pleomorphic adenoma. PROCEDURE: Right superficial parotidectomy with preservation of facial nerve (using NIM). SIGNIFICANT FINDINGS: Frozen section analysis reveals pleomorphic adenoma. PHP MYSQL WEB DEVELOPER: Kajal Negro. ANESTHESIA: General endotracheal tube anesthesia. SPECIMENS REMOVED: The right superficial parotid lobe (inferior portion). ESTIMATED BLOOD LOSS: 60 mL. COMPLICATIONS: None. INDICATIONS: Patient is a 77-year-old female with greater than 20 years' history of a right parotid mass, which she believes is enlarging in size. Fine needle aspiration biopsies performed on January 06, 2015 and December 19, 2017 were consistent with pleomorphic adenoma. CT of the neck performed on November 16, 2014 revealed a 2.2 x 1.9 cm mass in the right parotid gland. Ultrasound performed on December 19, 2017 revealed a 2.6 cm mass in the right parotid gland. On examination, there is a palpable 3 cm nontender, mobile mass in the right parotid gland. She is scheduled for right superficial (possible total) parotidectomy with preservation of facial nerve using nerve integrity monitor (NIM) for the treatment of right parotid gland mass. Risks and complications of the procedure were thoroughly discussed with patient and her son and they include infection, bleeding, scarring, failure to improve, need for additional operations, possibility of malignancy and need for further surgery and treatment, facial paralysis, poor external cosmetic appearance of the incision, numbness of the earlobe, sweating of the face when eating, collection of saliva, blood or serous fluid underneath the skin flaps requiring further drainage, need for blood transfusions, damage to the surrounding nodes, blood vessels, and muscles. They fully understand and give consent. DESCRIPTION OF PROCEDURE: Patient was taken to the operating room and placed supine on the operating table, where general anesthesia was achieved through orotracheal intubation. Eyes were taped. A shoulder roll was placed. Ancef was administered. The paralysis had worn off by the time the procedure started. The electrodes to be used for the nerve integrity monitor (NIM) were then inserted and connected to the NIM monitor box. Injection with 1:100,000 epinephrine without Lidocaine was injected along the planned right parotidectomy incision as well as the area of the right anterior skin flap (10 mL were injected). Following this, the face was then prepped and draped in the usual sterile fashion with the right face in full view to monitor for facial function during the course of the surgery. Monopolar cautery was not used because the patient underwent previous cardiac pacemaker placement. The Harmonic scalpel and bipolar cauteries were used solely. Following this, the right parotidectomy incision was then made with a 15 blade involving the vertical aspect in the preauricular area extending inferiorly past the earlobe, curving slightly posteriorly and then curving anteriorly to involve the natural skin crease 2 fingerbreadths inferior to the margin of right mandible. This was done until the lateral fascia of the parotid gland was encountered. The anterior and posterior flaps were then elevated with steel instruments in the form of a 15 blade and scissors. Following this, dissection was then carried out along a wide trough starting inferiorly at the anterior border of the sternocleidomastoid muscle. This was extended superiorly. The main trunk of the facial nerve was then identified and confirmed with the probe connected to the NIM monitor. This was then dissected anteriorly. The mass appeared to be in the inferior half of the right superficial parotid lobe. The branches of the southern/inferior trunk of the facial nerve as well as the inferiormost branches of the northern/superior trunk were then dissected as it passed anteriorly and in this way, the inferior half of the right superficial lobe containing the mass was then removed. This was sent for frozen section analysis, which revealed pleomorphic adenoma. The functional integrity of the facial nerve and its branches was confirmed by the stimulator following the case. There was no bleeding with Valsalva maneuver. Thorough irrigation was then performed. A FANG drain was then brought out through a separate stab incision and was secured with 2-0 silk. The wound was then repaired with interrupted 4-0 Monocryl in a subcuticular fashion, followed by Dermabond. Patient was awakened in the operating room, extubated, and taken to the recovery room in good condition. Job#: [id number] GEO TAPIA
[2018-01-29] MEDS: CEFAZOLIN SOD 1 GM VIAL IV SCH ×2 (15:02→20:19)
[2018-01-29 15:26] VITALS: BP 143/78
[2018-01-29] MEDS ORDERED: DEXAMETHASONE SOD PHOS INJ 4 MG/ML VIAL ONE (17:28)
[2018-01-29] MEDS ORDERED: SEVOFLURANE INHAL SOLN 250 ML PEN BTL ONE (17:28)
[2018-01-29] MEDS ORDERED: ONDANSETRON HCL INJ 2 MG/ML VIAL ONE (17:28)
[2018-01-29] MEDS ORDERED: ACETAMINOPHEN 1000 MG/100 ML IV ONE (17:28)
[2018-01-29] MEDS ORDERED: PROPOFOL IV EMULSION 10 MG/ML 20 ML VIAL ONE (17:28)
[2018-01-29] MEDS ORDERED: LIDOCAINE HCL 2% LOCAL INJ 5 ML SDV VIAL INJ ONE (17:28)
[2018-01-29] MEDS: LABETALOL HCL 200 MG TAB PO SCH (17:54)
[2018-01-29] MEDS: DICYCLOMINE HCL 20 MG TAB PO SCH ×2 (17:55→20:20)
[2018-01-29] MEDS ORDERED: FENTANYL CITRATE/PF 100MCG/2 ML INJ ONE (18:45)
[2018-01-29] MEDS ORDERED: MIDAZOLAM HCL 2 MG/2 ML VIAL ONE (18:45)
[2018-01-29 18:55] VITALS: BP 160/72
[2018-01-29 20:00] VITALS: BP 160/2
[2018-01-29] MEDS: HYDRALAZINE HCL 25 MG TAB PO SCH (20:19)
[2018-01-30] VITALS: BP 144/64
[2018-01-30] MEDS: DICYCLOMINE HCL 20 MG TAB PO SCH ×2 (00:59→05:02)
[2018-01-30 04:00] VITALS: BP 156/68
[2018-01-30] MEDS: CEFAZOLIN SOD 1 GM VIAL IV SCH (05:02)
[2018-01-30 07:43] VITALS: BP 189/83
[2018-01-30] MEDS: HYDRALAZINE HCL 25 MG TAB PO SCH (08:13)
[2018-01-30] MEDS: LABETALOL HCL 200 MG TAB PO SCH (08:14)
[2018-01-30] MEDS ORDERED: AMIODARONE HCL 200 MG TAB PO SCH (09:00)
[2018-01-30] MEDS ORDERED: LOSARTAN POTASSIUM 100 MG TAB PO SCH (09:00)
[2018-01-30 11:00] VITALS: BP 156/85
== END 2018-01-30 11:10 | disposition home or self-care (01) ==
LOC: OR 05:16 → IMCU 10:47
PROVIDERS: ADMIT Otolaryngology; ATTEND Otolaryngology
DX: D11.0 Benign neoplasm of parotid gland (principal); I10 Essential (primary) hypertension; I49.9 Cardiac arrhythmia, unspecified; Z95.0 Presence of cardiac pacemaker; E03.9 Hypothyroidism, unspecified
CPT/HCPCS: 42415; 71046; 88307; G0378 ×2; J0171; J0360; J0690 ×2; J1100; J2001; J2250; J2405; 88304